=== PATIENT | male | born 1955 | race Caucasian/White ===

== ENCOUNTER 2019-01-28 12:12 | Inpatient (IN) | payer OTHER ==
--- NOTE | 2019-01-28 14:30 | HP ---
CIWA Score Nausea/Vomitin Muscle Tremors: 3 Anxiety: 2 Agitation: 2 Paroxysmal Sweats: No Perspiration Orientation: 0-Oriented Tacttile Disturbances: 0-None Auditory Disturbances: 0-None Visual Disturbances: 1-Very Mild Sensitivity Headache: 2-Mild CIWA-Ar Total Score: 12 - Admission Criteria OASAS Guidelines: Admission for Medically Managed Detox: Requires at least one of the followin. CIWA greater than 12 2. Seizures within the past 24 hours 3. Delirium tremens within the past 24 hours 4. Hallucinations within the past 24 hours 5. Acute intervention needed for co occurring medical disorder 6. Acute intervention needed for co occurring psychiatric disorder 7. Severe withdrawal that cannot be handled at a lower level of care (continued vomiting, continued diarrhea, abnormal vital signs) requiring intravenous medication and/or fluids 8. Admitting History and Physical - Smoking History Smoking history: Current every day smoker Have you smoked in the past 12 months: Yes Aproximately how many cigarettes per day: 10 - Alcohol/Substance Use Hx Alcohol Use: Yes Admission [facility] Chief Complaint: "alcohol detox" Allergies/Adverse Reactions: Allergies Allergy/AdvReac Type Severity Reaction Status Date / Time No Known Allergies Allergy Verified 01/28/19 14:14 History of Present Illness: 63 year old male with a history of alcohol dependence, hepatitis B, COPD, on methadone 170mg ([facility]) is here for alcohol detox. Alcohol: 3 6-packs (24oz beers) daily, last drink this AM; drinks every day for 3 years, longest sobriety 18 months. Drinks because of depression and anxiety. Has never had a seizure from stopping. When stops, gets "panicky", tremulous. 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 He is currently on 2.5mg of klonopin daily, 1mg in the morning ~7am and 1mg at lunchtime ~1pm as well as a 0.5mg dose before bedtime. He needs a structured environment for recovery and thus will be admitted to rehab. Please call Dr. Hernández for renewal of patient's Klonopin Exam Limitations: No Limitations - Ebola screening Have you traveled outside of the country in the last 21 days: No Have you had contact with anyone from an Ebola affected area: No Do you have a fever: No - Review of Systems Constitutional: No Symptoms Reported EENT: reports: No Symptoms Reported, Cataracts (L eye) Respiratory: reports: Cough, Shortness of Breath GI: reports: No Symptoms Reported : reports: No Symptoms Reported Musculoskeletal: reports: Back Pain Integumentary: reports: No Symptoms Reported Neuro: reports: Headache Endocrine: reports: No Symptoms Reported Hematology: reports: No Symptoms Reported Psychiatric: reports: Judgement Intact, Mood/Affect Appropiate, Orientated x3 Patient History - Patient Medical History Hx Anemia: No Hx Asthma: Yes Hx Chronic Obstructive Pulmonary Disease (COPD): No Hx Cancer: No Hx Cardiac Disorders: No Hx Congestive Heart Failure: No Hx Hypertension: Yes (not on meds.) Hx Hypercholesterolemia: No Hx Pacemaker: No HX Cerebrovascular Accident: No Hx Seizures: Yes (etoh related seizures last in 2009) Hx Dementia: No Hx Diabetes: No Hx Gastrointestinal Disorders: No Hx Liver Disease: No Hx Genitourinary Disorders: No Hx Sexually Transmitted Disorders: Yes (Gon[place]hea as a teen) Hx Renal Disease (ESRD): No Hx Thyroid Disease: No Hx Human Immunodeficiency Virus (HIV): No Hx Hepatitis C: Yes Hx Depression: Yes (AND ANXIETY) Hx Suicide Attempt: No Hx Bipolar Disorder: Yes Hx Schizophrenia: No - Patient Surgical History Past Surgical History: Yes Other Surgical History: tramatic injury to the left hand x3(2000) - Smoking Cessation Smoking history: Current every day smoker Have you smoked in the past 12 months: Yes Aproximately how many cigarettes per day: 10 Hx Chewing Tobacco Use: No Initiated information on smoking cessation: Yes 'Breaking Loose' booklet given: 01/28/19 - Substances abused Alcohol Other (specify): vodka/beer Substance route: Oral Frequency: Daily Amount used: 2 pints/2 6pk beers Age of first use: 10 Date of last use: 01/28/19 Admission Physical Exam [facility] - Vital Signs Vital Signs: Vital Signs - 24 hr 01/28/19 13:55 Temperature 97.3 F L Pulse Rate 77 Respiratory 18 Rate Blood Pressure 137/75 - Physical General Appearance: Yes: No Apparent Distress, Appropriately Dressed HEENTM: Yes: EOMI, Normal ENT Inspection Respiratory: Yes: Chest Non-Tender, Lungs Clear, Normal Breath Sounds Breast: Yes: Within Normal Limits Cardiology: Yes: Regular Rhythm, Regular Rate Abdominal: Yes: Normal Bowel Sounds, Non Tender Genitourinary: Yes: Within Normal Limits Back: Yes: Normal Inspection Musculoskeletal: Yes: full range of Motion, Other (mild kyphosis noted) Extremities: Yes: Normal Capillary Refill Neurological: Yes: nurse obgyn II-XII NML intact, Fully Oriented, Alert, Motor Strength 5/5 Integumentary: Yes: Dry, Warm Lymphatic: Yes: Within Normal Limits - Diagnostic (1) Alcohol dependence Current Visit: No Status: Active (2) Sedative dependence Current Visit: No Status: Active Cleared for Admission S - Detox or Rehab [facility] Level of Care: Medically Managed Breathalyzer - Breathalyzer Breathalyzer: 0.020 Urine Drug Screen - Test Device Lot number: [id number] Expiration date: 09/30/20 - Control Is test valid?: Yes - Results Drug screen NEGATIVE: No Urine drug screen results: BZO-Benzodiazepines Inpatient Rehab Admission - Rehab Decision to Admit Inpatient rehab admission?: Yes - Initial Determination Are CD services needed?: Yes Free of communicable disease: Yes Not in need of hospitalization: Yes - Rehab Admission Criteria Previous failed treatment: No Poor recovery environment: Yes Comorbidities: No Lacks judgement: No Patient is meeting Inpatient Rehab admission criteria:: Yes
--- NOTE | 2019-01-28 15:37 | PN ---
Teaching Attending Note Name of Resident: Jair Zaman ATTENDING PHYSICIAN STATEMENT I saw and evaluated the patient. I reviewed the resident's note and discussed the case with the resident. I agree with the resident's findings and plan as documented. SUBJECTIVE: 63 yo with opioid use disorder on methadone, here for alcohol detox. Says he has been drinking heavily for the last 3 years- drinks for relief of anxiety and depression. Pt was sent here by by housing- smell of alcohol on breath. Pt is in a methadone program and gets Klonopn 2.5 mg/day- pt states he takes it according to schedule. Pt lives alone, has cataracts. Pt has a difficult time cooking and eating regular meals. OBJECTIVE: Vital Signs - 24 hr 01/28/19 13:55 Temperature 97.3 F L Pulse Rate 77 Respiratory 18 Rate Blood Pressure 137/75 ASSESSMENT AND PLAN: alcohol use disorder- will continue Klonopin, and methadone after verification of dose. As pt needs a structured recovery program to help with alcohol discontinuation- will admit pt for rehab and continue klonopin- d/w Dr. Hernández-
[2019-01-28] MEDS ORDERED: P-EPHED 60MG/TRIPROLIDI 2.5MG TABLET PO PRN (16:13)
[2019-01-28] MEDS ORDERED: ACETAMINOPHEN 325 MG TABLET (FP) PO PRN (16:13)
[2019-01-28] MEDS ORDERED: IBUPROFEN 400 MG TABLET (FP) PO PRN (16:13)
[2019-01-28] MEDS ORDERED: MAGNESIUM CITRATE 300 ML BOTTLE PO PRN (16:13)
[2019-01-28] MEDS ORDERED: guaiFENesin 200 MG/10 ML 10 ML UNIT-DOSE CUPS PO PRN (16:13)
[2019-01-28] MEDS ORDERED: LOPERAMIDE HCL 2 MG CAPSULE PO PRN (16:13)
[2019-01-28] MEDS ORDERED: MENTHOL/PHENOL 1 EACH UD MM PRN (16:13)
[2019-01-28] MEDS ORDERED: clonazePAM 0.5 MG TABLET PO PRN (16:16)
[2019-01-28] MEDS ORDERED: clonazePAM 0.5 MG TABLET PO ONE (16:30)
[2019-01-28] MEDS ORDERED: TUBERCULIN PPD 5 TU/0.1ML VIAL ID ONE (18:25)
[2019-01-28] MEDS: THIAMINE HCL 100 MG TABLET (FP) PO SCH (22:19)
[2019-01-29] MEDS: clonazePAM 0.5 MG TABLET PO SCH ×2 (06:49→14:09)
[2019-01-29] MEDS ORDERED: METHADONE HCL 10 MG TABLET PO SCH (10:15)
[2019-01-29] MEDS ORDERED: METHADONE HCL 10 MG TABLET ONE (10:43)
[2019-01-29] MEDS ORDERED: METHADONE HCL 40 MG DISPERSABLE TABLET ONE (10:43)
[2019-01-29] MEDS: METHADONE 160 MG, METHADONE 10 MG PO SCH (10:44)
[2019-01-29] MEDS: PRENATAL VITAMINS W/ FOLIC ACID TABLET (FP) PO SCH (10:48)
[2019-01-29 11:55] LABS: HEMATOCRIT 35.8 % (35.4-49); HEMOGLOBIN 10.7 GM/dL (11.7-16.9); MCH 22.8 pg (25.7-33.7); MEAN CELL VOLUME 75.9 fl (80-96); MEAN PLT VOLUME 8.9 fl (7.5-11.1); PLATELET COUNT 109 K/MM3 (134-434); RBC 4.71 M/mm3 (4.00-5.60)
[2019-01-29 12:11] LABS: ALBUMIN 3.4 g/dl (3.4-5.0); BILIRUBIN,TOTAL 0.7 mg/dL (0.2-1); BLOOD UREA NITROGEN 11.7 mg/dL (7-18); CALCIUM 8.2 mg/dL (8.5-10.1); CREATININE 0.9 mg/dL (0.55-1.3); POTASSIUM 4.2 mmol/L (3.5-5.1); TOT PROT 7.8 g/dl (6.4-8.2)
[2019-01-29] MEDS: THIAMINE HCL 100 MG TABLET (FP) PO SCH (21:44)
[2019-01-29] MEDS: clonazePAM 0.5 MG TABLET PO PRN (21:46)
[2019-01-29 22:57] LABS: EPI CELLS 1.2 /HPF (0-5/HPF); HYALINE CASTS 0 /lpf (0-8); URINE APPEARANCE CLEAR; URINE BACTERIA 20.1 /hpf (NEGATIVE); URINE BILIRUBIN NEGATIVE (NEGATIVE); URINE COLOR YELLOW; URINE GLUCOSE (UA) NEGATIVE (NEGATIVE); URINE KETONE NEGATIVE (NEGATIVE); URINE LEUK ESTERASE 1+ (NEGATIVE); URINE NITRITE NEGATIVE (NEGATIVE); URINE PROTEIN NEGATIVE (NEGATIVE); URINE RBC 1 /hpf (0-4); URINE WBC 2 /hpf (0-5)
[2019-01-30] MEDS ORDERED: METHADONE HCL 40 MG DISPERSABLE TABLET ONE (05:03)
[2019-01-30] MEDS ORDERED: METHADONE HCL 10 MG TABLET ONE (05:03)
[2019-01-30] MEDS: METHADONE 160 MG, METHADONE 10 MG PO SCH (06:55)
[2019-01-30] MEDS: clonazePAM 0.5 MG TABLET PO SCH ×2 (06:55→13:12)
[2019-01-30] MEDS: PRENATAL VITAMINS W/ FOLIC ACID TABLET (FP) PO SCH (11:18)
[2019-01-30] MEDS: MELATONIN 5 MG TABLETS PO PRN (21:43)
[2019-01-30] MEDS: THIAMINE HCL 100 MG TABLET (FP) PO SCH (21:43)
[2019-01-30] MEDS: clonazePAM 0.5 MG TABLET PO PRN (21:44)
[2019-01-31] MEDS ORDERED: METHADONE HCL 40 MG DISPERSABLE TABLET ONE (05:45)
[2019-01-31] MEDS ORDERED: METHADONE HCL 10 MG TABLET ONE (05:45)
[2019-01-31] MEDS: METHADONE 160 MG, METHADONE 10 MG PO SCH (06:34)
[2019-01-31] MEDS: clonazePAM 0.5 MG TABLET PO SCH ×3 (06:34→21:52)
[2019-01-31] MEDS: PRENATAL VITAMINS W/ FOLIC ACID TABLET (FP) PO SCH (11:09)
[2019-01-31] MEDS ORDERED: clonazePAM 0.5 MG TABLET PO SCH (13:00)
--- NOTE | 2019-01-31 15:31 | PN ---
S Progress Note Note: pt c/o scalp irritation. Vital Signs - 24 hr 01/31/19 01/31/19 01/31/19 00:30 03:30 08:07 Temperature 97.2 F L Pulse Rate 65 Respiratory 18 18 18 Rate Blood Pressure 148/90 Laboratory Tests 01/29/19 01/29/19 01/29/19 08:20 08:20 08:20 WBC 4.0 RBC 4.71 Hgb 10.7 L Hct 35.8 MCV 75.9 L MCH 22.8 L MCHC 30.0 L RDW 19.0 H Plt Count 109 L MPV 8.9 Sodium 136 Potassium 4.2 Chloride 96 L Carbon Dioxide 34 H Anion Gap 7 L BUN 11.7 Creatinine 0.9 Est GFR (CKD-EPI)AfAm 103.51 Est GFR (CKD-EPI)NonAf 89.31 POC Glucometer Random Glucose 172 H Calcium 8.2 L Total Bilirubin 0.7 AST 30 ALT 20 Alkaline Phosphatase 63 Total Protein 7.8 Albumin 3.4 Urine Color Urine Appearance Urine pH Ur Specific [place] Urine Protein Urine Glucose (UA) Urine Ketones Urine Blood Urine Nitrite Urine Bilirubin Urine Urobilinogen Ur Leukocyte Esterase Urine WBC (Auto) Urine RBC (Auto) Urine Casts (Auto) U Epithel Cells (Auto) Urine Bacteria (Auto) RPR Titer Nonreactive 01/29/19 01/30/19 01/31/19 14:44 06:54 06:37 WBC RBC Hgb Hct MCV MCH MCHC RDW Plt Count MPV Sodium Potassium Chloride Carbon Dioxide Anion Gap BUN Creatinine Est GFR (CKD-EPI)AfAm Est GFR (CKD-EPI)NonAf POC Glucometer 99 76 Random Glucose Calcium Total Bilirubin AST ALT Alkaline Phosphatase Total Protein Albumin Urine Color Yellow Urine Appearance Clear Urine pH 7.0 D Ur Specific [place] 1.010 Urine Protein Negative Urine Glucose (UA) Negative Urine Ketones Negative Urine Blood Negative Urine Nitrite Negative Urine Bilirubin Negative Urine Urobilinogen 1.0 Ur Leukocyte Esterase 1+ H Urine WBC (Auto) 2 Urine RBC (Auto) 1 Urine Casts (Auto) 0 U Epithel Cells (Auto) 1.2 Urine Bacteria (Auto) 20.1 RPR Titer Head:clean with some mild scalp dryness and flakes. A/P Dandruff Selsun lotion as directed x 7 days.
[2019-01-31] MEDS: THIAMINE HCL 100 MG TABLET (FP) PO SCH (21:52)
[2019-01-31] MEDS: MELATONIN 5 MG TABLETS PO PRN (21:52)
[2019-02-01] MEDS ORDERED: METHADONE HCL 40 MG DISPERSABLE TABLET ONE (05:47)
[2019-02-01] MEDS ORDERED: METHADONE HCL 10 MG TABLET ONE (05:47)
[2019-02-01] MEDS: clonazePAM 0.5 MG TABLET PO SCH ×3 (06:50→21:27)
[2019-02-01] MEDS: METHADONE 160 MG, METHADONE 10 MG PO SCH (06:50)
[2019-02-01] MEDS: SELENIUM SULFIDE 2.5% LOTION 4 OZ. TP SCH (10:59)
[2019-02-01] MEDS: PRENATAL VITAMINS W/ FOLIC ACID TABLET (FP) PO SCH (11:00)
[2019-02-01] MEDS: MELATONIN 5 MG TABLETS PO PRN (21:27)
[2019-02-01] MEDS: THIAMINE HCL 100 MG TABLET (FP) PO SCH (21:27)
[2019-02-02] MEDS ORDERED: METHADONE HCL 10 MG TABLET ONE (05:20)
[2019-02-02] MEDS ORDERED: METHADONE HCL 40 MG DISPERSABLE TABLET ONE (05:21)
[2019-02-02] MEDS: clonazePAM 0.5 MG TABLET PO SCH ×3 (06:04→21:35)
[2019-02-02] MEDS: METHADONE 160 MG, METHADONE 10 MG PO SCH (06:06)
[2019-02-02] MEDS: SELENIUM SULFIDE 2.5% LOTION 4 OZ. TP SCH (10:20)
[2019-02-02] MEDS: PRENATAL VITAMINS W/ FOLIC ACID TABLET (FP) PO SCH (10:20)
[2019-02-02] MEDS: MELATONIN 5 MG TABLETS PO PRN (21:35)
[2019-02-02] MEDS: THIAMINE HCL 100 MG TABLET (FP) PO SCH (21:35)
[2019-02-03] MEDS ORDERED: METHADONE HCL 40 MG DISPERSABLE TABLET ONE (06:09)
[2019-02-03] MEDS ORDERED: METHADONE HCL 10 MG TABLET ONE (06:09)
[2019-02-03] MEDS: clonazePAM 0.5 MG TABLET PO SCH ×3 (06:10→21:38)
[2019-02-03] MEDS: METHADONE 160 MG, METHADONE 10 MG PO SCH (06:11)
[2019-02-03] MEDS: MAGNESIUM HYDROX 2400MG/30ML ORAL SUSPENSION 30 ML CUP PO PRN (07:33)
[2019-02-03] MEDS: SELENIUM SULFIDE 2.5% LOTION 4 OZ. TP SCH (09:45)
[2019-02-03] MEDS: PRENATAL VITAMINS W/ FOLIC ACID TABLET (FP) PO SCH (09:45)
[2019-02-03] MEDS: THIAMINE HCL 100 MG TABLET (FP) PO SCH (21:38)
[2019-02-03] MEDS: MELATONIN 5 MG TABLETS PO PRN (21:38)
[2019-02-04] MEDS ORDERED: METHADONE HCL 40 MG DISPERSABLE TABLET ONE (04:34)
[2019-02-04] MEDS ORDERED: METHADONE HCL 10 MG TABLET ONE (04:34)
[2019-02-04] MEDS: METHADONE 160 MG, METHADONE 10 MG PO SCH (05:28)
[2019-02-04] MEDS: clonazePAM 0.5 MG TABLET PO SCH ×3 (06:01→21:28)
[2019-02-04] MEDS: SELENIUM SULFIDE 2.5% LOTION 4 OZ. TP SCH (10:22)
[2019-02-04] MEDS: PRENATAL VITAMINS W/ FOLIC ACID TABLET (FP) PO SCH (10:22)
[2019-02-04] MEDS: MELATONIN 5 MG TABLETS PO PRN (21:28)
[2019-02-04] MEDS: THIAMINE HCL 100 MG TABLET (FP) PO SCH (21:28)
[2019-02-04] MEDS: MAGNESIUM HYDROX 2400MG/30ML ORAL SUSPENSION 30 ML CUP PO PRN (21:30)
[2019-02-05] MEDS ORDERED: METHADONE HCL 10 MG TABLET ONE (05:56)
[2019-02-05] MEDS ORDERED: METHADONE HCL 40 MG DISPERSABLE TABLET ONE (05:57)
[2019-02-05] MEDS: clonazePAM 0.5 MG TABLET PO SCH ×3 (06:29→21:07)
[2019-02-05] MEDS: METHADONE 160 MG, METHADONE 10 MG PO SCH (06:38)
[2019-02-05] MEDS: SELENIUM SULFIDE 2.5% LOTION 4 OZ. TP SCH (11:00)
[2019-02-05] MEDS: PRENATAL VITAMINS W/ FOLIC ACID TABLET (FP) PO SCH (11:00)
[2019-02-05] MEDS: MELATONIN 5 MG TABLETS PO PRN (21:07)
[2019-02-05] MEDS: THIAMINE HCL 100 MG TABLET (FP) PO SCH (21:08)
[2019-02-06] MEDS ORDERED: METHADONE HCL 40 MG DISPERSABLE TABLET PO SCH (07:30)
[2019-02-06] MEDS ORDERED: METHADONE HCL 40 MG DISPERSABLE TABLET ONE (07:49)
[2019-02-06] MEDS ORDERED: METHADONE HCL 10 MG TABLET ONE (07:49)
[2019-02-06] MEDS: METHADONE 160 MG, METHADONE 10 MG PO SCH (08:07)
[2019-02-06] MEDS: PRENATAL VITAMINS W/ FOLIC ACID TABLET (FP) PO SCH (10:04)
[2019-02-06] MEDS: clonazePAM 0.5 MG TABLET PO SCH ×3 (10:04→21:12)
[2019-02-06] MEDS: SELENIUM SULFIDE 2.5% LOTION 4 OZ. TP SCH (11:12)
[2019-02-06] MEDS: THIAMINE HCL 100 MG TABLET (FP) PO SCH (21:12)
[2019-02-06] MEDS: MELATONIN 5 MG TABLETS PO PRN (21:12)
[2019-02-07] MEDS ORDERED: METHADONE HCL 10 MG TABLET ONE (05:52)
[2019-02-07] MEDS ORDERED: METHADONE HCL 40 MG DISPERSABLE TABLET ONE (05:52)
[2019-02-07] MEDS: METHADONE 160 MG, METHADONE 10 MG PO SCH (05:53)
[2019-02-07] MEDS: SELENIUM SULFIDE 2.5% LOTION 4 OZ. TP SCH (10:07)
[2019-02-07] MEDS: PRENATAL VITAMINS W/ FOLIC ACID TABLET (FP) PO SCH (10:07)
[2019-02-07] MEDS: clonazePAM 0.5 MG TABLET PO SCH ×2 (10:11→14:39)
[2019-02-07] MEDS: MELATONIN 5 MG TABLETS PO PRN (21:09)
[2019-02-07] MEDS: clonazePAM 0.5 MG TABLET PO PRN (21:09)
[2019-02-07] MEDS: THIAMINE HCL 100 MG TABLET (FP) PO SCH (21:10)
[2019-02-07] MEDS: MAG HYDROX/AL HYDROX/SIMETH 30 ML UNIT-DOSE CUP PO PRN (22:00)
[2019-02-08] MEDS ORDERED: METHADONE HCL 10 MG TABLET ONE (05:44)
[2019-02-08] MEDS ORDERED: METHADONE HCL 40 MG DISPERSABLE TABLET ONE (05:45)
[2019-02-08] MEDS: clonazePAM 0.5 MG TABLET PO SCH ×2 (06:05→13:05)
[2019-02-08] MEDS: METHADONE 160 MG, METHADONE 10 MG PO SCH (06:06)
[2019-02-08] MEDS: PRENATAL VITAMINS W/ FOLIC ACID TABLET (FP) PO SCH (10:18)
--- NOTE | 2019-02-08 14:36 | PN ---
[facility] Progress Note (SOAP) Subjective: Nurse Muna Cabral reports that this pt reported bumping his left knee against an object. Denies pain. Objective: 02/08/19 14:33 Vital Signs - 24 hr 02/08/19 02/08/19 02/08/19 00:30 03:30 07:21 Temperature 97.6 F Pulse Rate 59 L Respiratory 18 18 18 Rate Blood Pressure 131/73 Left Knee:Dark colored, dry old scabs on knee. No bleeding or swelling noted. no pain noted. Assessment: 02/08/19 14:33 Old injury scabs Pt c/o recent knee bumping Plan: Bacitracin ointment, apply to soften and scale off old scabs.
[2019-02-08] MEDS: clonazePAM 0.5 MG TABLET PO PRN (21:16)
[2019-02-08] MEDS: MELATONIN 5 MG TABLETS PO PRN (21:16)
[2019-02-08] MEDS: BACITRACIN 15 GM TUBE TOPICAL OINTMENT TP SCH (21:17)
[2019-02-08] MEDS: THIAMINE HCL 100 MG TABLET (FP) PO SCH (21:17)
[2019-02-09] MEDS ORDERED: METHADONE HCL 10 MG TABLET ONE (03:46)
[2019-02-09] MEDS ORDERED: METHADONE HCL 40 MG DISPERSABLE TABLET ONE (03:47)
[2019-02-09] MEDS: clonazePAM 0.5 MG TABLET PO SCH ×2 (06:17→13:42)
[2019-02-09] MEDS: METHADONE 160 MG, METHADONE 10 MG PO SCH (06:17)
[2019-02-09] MEDS: BACITRACIN 15 GM TUBE TOPICAL OINTMENT TP SCH ×2 (09:47→22:10)
[2019-02-09] MEDS: PRENATAL VITAMINS W/ FOLIC ACID TABLET (FP) PO SCH (09:48)
[2019-02-09] MEDS: MAG HYDROX/AL HYDROX/SIMETH 30 ML UNIT-DOSE CUP PO PRN (14:24)
[2019-02-09] MEDS: THIAMINE HCL 100 MG TABLET (FP) PO SCH (21:07)
[2019-02-09] MEDS: MELATONIN 5 MG TABLETS PO PRN (21:09)
[2019-02-09] MEDS: clonazePAM 0.5 MG TABLET PO PRN (21:09)
[2019-02-10] MEDS ORDERED: METHADONE HCL 10 MG TABLET ONE (05:00)
[2019-02-10] MEDS ORDERED: METHADONE HCL 40 MG DISPERSABLE TABLET ONE (05:00)
[2019-02-10] MEDS: METHADONE 160 MG, METHADONE 10 MG PO SCH (06:29)
[2019-02-10] MEDS: clonazePAM 0.5 MG TABLET PO SCH ×2 (06:30→12:49)
[2019-02-10] MEDS: PRENATAL VITAMINS W/ FOLIC ACID TABLET (FP) PO SCH (10:14)
[2019-02-10] MEDS: BACITRACIN 15 GM TUBE TOPICAL OINTMENT TP SCH ×2 (10:14→21:16)
[2019-02-10] MEDS: THIAMINE HCL 100 MG TABLET (FP) PO SCH (21:16)
[2019-02-10] MEDS: MELATONIN 5 MG TABLETS PO PRN (21:16)
[2019-02-11] MEDS ORDERED: METHADONE HCL 10 MG TABLET ONE (05:51)
[2019-02-11] MEDS ORDERED: METHADONE HCL 40 MG DISPERSABLE TABLET ONE (05:52)
[2019-02-11] MEDS: clonazePAM 0.5 MG TABLET PO SCH ×2 (06:07→12:58)
[2019-02-11] MEDS: METHADONE 160 MG, METHADONE 10 MG PO SCH (06:08)
[2019-02-11] MEDS: PRENATAL VITAMINS W/ FOLIC ACID TABLET (FP) PO SCH (10:08)
[2019-02-11] MEDS: BACITRACIN 15 GM TUBE TOPICAL OINTMENT TP SCH ×2 (10:08→21:21)
[2019-02-11] MEDS: MELATONIN 5 MG TABLETS PO PRN (21:20)
[2019-02-11] MEDS: clonazePAM 0.5 MG TABLET PO PRN (21:20)
[2019-02-11] MEDS: THIAMINE HCL 100 MG TABLET (FP) PO SCH (21:21)
[2019-02-11] MEDS: MAG HYDROX/AL HYDROX/SIMETH 30 ML UNIT-DOSE CUP PO PRN (23:03)
[2019-02-12] MEDS ORDERED: METHADONE HCL 40 MG DISPERSABLE TABLET ONE (05:42)
[2019-02-12] MEDS ORDERED: METHADONE HCL 10 MG TABLET ONE (05:42)
[2019-02-12] MEDS: METHADONE 160 MG, METHADONE 10 MG PO SCH (05:54)
[2019-02-12] MEDS: clonazePAM 0.5 MG TABLET PO SCH (05:55)
[2019-02-12] MEDS: BACITRACIN 15 GM TUBE TOPICAL OINTMENT TP SCH ×2 (10:42→21:13)
[2019-02-12] MEDS: PRENATAL VITAMINS W/ FOLIC ACID TABLET (FP) PO SCH (10:42)
[2019-02-12] MEDS ORDERED: clonazePAM 0.5 MG TABLET PO SCH (13:00)
[2019-02-12] MEDS: clonazePAM 0.5 MG TABLET PO PRN (21:12)
[2019-02-12] MEDS: MELATONIN 5 MG TABLETS PO PRN (21:12)
[2019-02-12] MEDS: THIAMINE HCL 100 MG TABLET (FP) PO SCH (21:13)
[2019-02-13] MEDS ORDERED: METHADONE HCL 10 MG TABLET ONE (05:04)
[2019-02-13] MEDS ORDERED: METHADONE HCL 40 MG DISPERSABLE TABLET ONE (05:04)
[2019-02-13] MEDS ORDERED: METHADONE HCL 10 MG TABLET PO SCH (06:00)
[2019-02-13] MEDS: METHADONE 160 MG, METHADONE 10 MG PO SCH (06:22)
[2019-02-13] MEDS: clonazePAM 0.5 MG TABLET PO SCH ×2 (06:22→13:14)
[2019-02-13] MEDS: PRENATAL VITAMINS W/ FOLIC ACID TABLET (FP) PO SCH (10:15)
[2019-02-13] MEDS: BACITRACIN 15 GM TUBE TOPICAL OINTMENT TP SCH ×2 (10:16→21:15)
--- NOTE | 2019-02-13 10:24 | PN ---
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 No hx of DM. Pt was on BGM ACBK x 3 days but will continue monitoring. Pt has also been observed by staff to be very sedated in groups and on hallways. Pt insists on having his sedative(klonopin) at all means. Staff explained to patient the effects of multiple sedating medications and precautions per protocol but patient has very little insight to explanations. Vital Signs - 24 hr 02/13/19 02/13/19 02/13/19 00:30 03:30 07:14 Temperature 97.7 F Pulse Rate 59 L Respiratory 18 16 16 Rate Blood Pressure 124/81 Laboratory Tests 01/29/19 01/29/19 01/29/19 08:20 08:20 08:20 WBC 4.0 RBC 4.71 Hgb 10.7 L Hct 35.8 MCV 75.9 L MCH 22.8 L MCHC 30.0 L RDW 19.0 H Plt Count 109 L MPV 8.9 Sodium 136 Potassium 4.2 Chloride 96 L Carbon Dioxide 34 H Anion Gap 7 L BUN 11.7 Creatinine 0.9 Est GFR (CKD-EPI)AfAm 103.51 Est GFR (CKD-EPI)NonAf 89.31 POC Glucometer Random Glucose 172 H Calcium 8.2 L Total Bilirubin 0.7 AST 30 ALT 20 Alkaline Phosphatase 63 Total Protein 7.8 Albumin 3.4 Urine Color Urine Appearance Urine pH Ur Specific [place] Urine Protein Urine Glucose (UA) Urine Ketones Urine Blood Urine Nitrite Urine Bilirubin Urine Urobilinogen Ur Leukocyte Esterase Urine WBC (Auto) Urine RBC (Auto) Urine Casts (Auto) U Epithel Cells (Auto) Urine Bacteria (Auto) RPR Titer Nonreactive 01/29/19 01/30/19 01/31/19 14:44 06:54 06:37 WBC RBC Hgb Hct MCV MCH MCHC RDW Plt Count MPV Sodium Potassium Chloride Carbon Dioxide Anion Gap BUN Creatinine Est GFR (CKD-EPI)AfAm Est GFR (CKD-EPI)NonAf POC Glucometer 99 76 Random Glucose Calcium Total Bilirubin AST ALT Alkaline Phosphatase Total Protein Albumin Urine Color Yellow Urine Appearance Clear Urine pH 7.0 D Ur Specific [place] 1.010 Urine Protein Negative Urine Glucose (UA) Negative Urine Ketones Negative Urine Blood Negative Urine Nitrite Negative Urine Bilirubin Negative Urine Urobilinogen 1.0 Ur Leukocyte Esterase 1+ H Urine WBC (Auto) 2 Urine RBC (Auto) 1 Urine Casts (Auto) 0 U Epithel Cells (Auto) 1.2 Urine Bacteria (Auto) 20.1 RPR Titer 02/02/19 02/02/19 02/03/19 06:02 07:53 06:08 WBC RBC Hgb Hct MCV MCH MCHC RDW Plt Count MPV Sodium Potassium Chloride Carbon Dioxide Anion Gap BUN Creatinine Est GFR (CKD-EPI)AfAm Est GFR (CKD-EPI)NonAf POC Glucometer 61 88 53 Random Glucose Calcium Total Bilirubin AST ALT Alkaline Phosphatase Total Protein Albumin Urine Color Urine Appearance Urine pH Ur Specific [place] Urine Protein Urine Glucose (UA) Urine Ketones Urine Blood Urine Nitrite Urine Bilirubin Urine Urobilinogen Ur Leukocyte Esterase Urine WBC (Auto) Urine RBC (Auto) Urine Casts (Auto) U Epithel Cells (Auto) Urine Bacteria (Auto) RPR Titer 02/03/19 02/04/19 02/05/19 07:31 07:19 06:28 WBC RBC Hgb Hct MCV MCH MCHC RDW Plt Count MPV Sodium Potassium Chloride Carbon Dioxide Anion Gap BUN Creatinine Est GFR (CKD-EPI)AfAm Est GFR (CKD-EPI)NonAf POC Glucometer 81 70 70 Random Glucose Calcium Total Bilirubin AST ALT Alkaline Phosphatase Total Protein Albumin Urine Color Urine Appearance Urine pH Ur Specific [place] Urine Protein Urine Glucose (UA) Urine Ketones Urine Blood Urine Nitrite Urine Bilirubin Urine Urobilinogen Ur Leukocyte Esterase Urine WBC (Auto) Urine RBC (Auto) Urine Casts (Auto) U Epithel Cells (Auto) Urine Bacteria (Auto) RPR Titer 02/06/19 02/06/19 02/07/19 07:50 08:06 07:10 WBC RBC Hgb Hct MCV MCH MCHC RDW Plt Count MPV Sodium Potassium Chloride Carbon Dioxide Anion Gap BUN Creatinine Est GFR (CKD-EPI)AfAm Est GFR (CKD-EPI)NonAf POC Glucometer 54 76 64 Random Glucose Calcium Total Bilirubin AST ALT Alkaline Phosphatase Total Protein Albumin Urine Color Urine Appearance Urine pH Ur Specific [place] Urine Protein Urine Glucose (UA) Urine Ketones Urine Blood Urine Nitrite Urine Bilirubin Urine Urobilinogen Ur Leukocyte Esterase Urine WBC (Auto) Urine RBC (Auto) Urine Casts (Auto) U Epithel Cells (Auto) Urine Bacteria (Auto) RPR Titer 02/08/19 02/09/19 02/10/19 06:03 06:15 06:10 WBC RBC Hgb Hct MCV MCH MCHC RDW Plt Count MPV Sodium Potassium Chloride Carbon Dioxide Anion Gap BUN Creatinine Est GFR (CKD-EPI)AfAm Est GFR (CKD-EPI)NonAf POC Glucometer 71 73 65 Random Glucose Calcium Total Bilirubin AST ALT Alkaline Phosphatase Total Protein Albumin Urine Color Urine Appearance Urine pH Ur Specific [place] Urine Protein Urine Glucose (UA) Urine Ketones Urine Blood Urine Nitrite Urine Bilirubin Urine Urobilinogen Ur Leukocyte Esterase Urine WBC (Auto) Urine RBC (Auto) Urine Casts (Auto) U Epithel Cells (Auto) Urine Bacteria (Auto) RPR Titer 02/10/19 02/11/19 02/12/19 06:29 06:06 05:54 WBC RBC Hgb Hct MCV MCH MCHC RDW Plt Count MPV Sodium Potassium Chloride Carbon Dioxide Anion Gap BUN Creatinine Est GFR (CKD-EPI)AfAm Est GFR (CKD-EPI)NonAf POC Glucometer 81 60 107 Random Glucose Calcium Total Bilirubin AST ALT Alkaline Phosphatase Total Protein Albumin Urine Color Urine Appearance Urine pH Ur Specific [place] Urine Protein Urine Glucose (UA) Urine Ketones Urine Blood Urine Nitrite Urine Bilirubin Urine Urobilinogen Ur Leukocyte Esterase Urine WBC (Auto) Urine RBC (Auto) Urine Casts (Auto) U Epithel Cells (Auto) Urine Bacteria (Auto) RPR Titer 02/13/19 02/13/19 06:08 06:21 WBC RBC Hgb Hct MCV MCH MCHC RDW Plt Count MPV Sodium Potassium Chloride Carbon Dioxide Anion Gap BUN Creatinine Est GFR (CKD-EPI)AfAm Est GFR (CKD-EPI)NonAf POC Glucometer 66 74 Random Glucose Calcium Total Bilirubin AST ALT Alkaline Phosphatase Total Protein Albumin Urine Color Urine Appearance Urine pH Ur Specific [place] Urine Protein Urine Glucose (UA) Urine Ketones Urine Blood Urine Nitrite Urine Bilirubin Urine Urobilinogen Ur Leukocyte Esterase Urine WBC (Auto) Urine RBC (Auto) Urine Casts (Auto) U Epithel Cells (Auto) Urine Bacteria (Auto) RPR Titer A/P Sporadic morning Hypoglycemia Sedation Continue BGM ACBK Increase po fluids as tolerated Discussed pt's status with Dr. malik, Re Examiner today who will re- evaluate and adjust patients klonopin. Follow up with primary care provider for medical management after rehab treatment.
[2019-02-13] MEDS ORDERED: clonazePAM 0.5 MG TABLET PO ONE ×2 (13:00)
[2019-02-13] MEDS: clonazePAM 0.5 MG TABLET PO PRN (21:15)
[2019-02-13] MEDS: MELATONIN 5 MG TABLETS PO PRN (21:15)
[2019-02-13] MEDS: THIAMINE HCL 100 MG TABLET (FP) PO SCH (21:16)
[2019-02-14] MEDS ORDERED: METHADONE HCL 10 MG TABLET ONE (05:43)
[2019-02-14] MEDS ORDERED: METHADONE HCL 40 MG DISPERSABLE TABLET ONE (05:44)
[2019-02-14] MEDS ORDERED: clonazePAM 0.5 MG TABLET PO ONE (06:00)
[2019-02-14] MEDS ORDERED: clonazePAM 0.5 MG TABLET PO SCH (06:00)
[2019-02-14] MEDS: METHADONE 160 MG, METHADONE 10 MG PO SCH (06:04)
[2019-02-14] MEDS: BACITRACIN 15 GM TUBE TOPICAL OINTMENT TP SCH ×2 (10:26→21:26)
[2019-02-14] MEDS: PRENATAL VITAMINS W/ FOLIC ACID TABLET (FP) PO SCH (10:26)
[2019-02-14] MEDS: clonazePAM 0.5 MG TABLET PO SCH (13:12)
[2019-02-14] MEDS: MELATONIN 5 MG TABLETS PO PRN (21:25)
[2019-02-14] MEDS: THIAMINE HCL 100 MG TABLET (FP) PO SCH (21:26)
[2019-02-14] MEDS: clonazePAM 0.5 MG TABLET PO PRN (21:26)
[2019-02-15] MEDS ORDERED: METHADONE HCL 10 MG TABLET ONE (06:01)
[2019-02-15] MEDS ORDERED: METHADONE HCL 40 MG DISPERSABLE TABLET ONE (06:01)
[2019-02-15] MEDS: METHADONE 160 MG, METHADONE 10 MG PO SCH (06:25)
[2019-02-15] MEDS ORDERED: clonazePAM 0.5 MG TABLET PO ONE (09:00)
[2019-02-15] MEDS: PRENATAL VITAMINS W/ FOLIC ACID TABLET (FP) PO SCH (09:55)
[2019-02-15] MEDS: BACITRACIN 15 GM TUBE TOPICAL OINTMENT TP SCH ×2 (11:22→23:11)
[2019-02-15] MEDS: clonazePAM 0.5 MG TABLET PO SCH (13:24)
[2019-02-15] MEDS: THIAMINE HCL 100 MG TABLET (FP) PO SCH (21:17)
[2019-02-15] MEDS: MELATONIN 5 MG TABLETS PO PRN (21:19)
[2019-02-15] MEDS: clonazePAM 0.5 MG TABLET PO PRN (21:19)
[2019-02-16] MEDS ORDERED: METHADONE HCL 40 MG DISPERSABLE TABLET ONE (05:59)
[2019-02-16] MEDS ORDERED: METHADONE HCL 10 MG TABLET ONE (05:59)
[2019-02-16] MEDS: clonazePAM 0.5 MG TABLET PO SCH ×2 (06:24→13:00)
[2019-02-16] MEDS: METHADONE 160 MG, METHADONE 10 MG PO SCH (06:24)
[2019-02-16] MEDS: BACITRACIN 15 GM TUBE TOPICAL OINTMENT TP SCH ×2 (10:04→21:29)
[2019-02-16] MEDS: PRENATAL VITAMINS W/ FOLIC ACID TABLET (FP) PO SCH (10:04)
[2019-02-16] MEDS: MELATONIN 5 MG TABLETS PO PRN (21:13)
[2019-02-16] MEDS: THIAMINE HCL 100 MG TABLET (FP) PO SCH (21:14)
[2019-02-16] MEDS: clonazePAM 0.5 MG TABLET PO PRN (21:14)
[2019-02-17] MEDS ORDERED: METHADONE HCL 10 MG TABLET ONE (04:57)
[2019-02-17] MEDS ORDERED: METHADONE HCL 40 MG DISPERSABLE TABLET ONE (04:57)
[2019-02-17] MEDS: METHADONE 160 MG, METHADONE 10 MG PO SCH (06:10)
[2019-02-17] MEDS: clonazePAM 0.5 MG TABLET PO SCH ×2 (06:10→13:04)
[2019-02-17] MEDS: BACITRACIN 15 GM TUBE TOPICAL OINTMENT TP SCH ×2 (09:39→21:14)
[2019-02-17] MEDS: PRENATAL VITAMINS W/ FOLIC ACID TABLET (FP) PO SCH (09:39)
[2019-02-17] MEDS: MAGNESIUM HYDROX 2400MG/30ML ORAL SUSPENSION 30 ML CUP PO PRN (09:54)
[2019-02-17] MEDS: THIAMINE HCL 100 MG TABLET (FP) PO SCH (21:13)
[2019-02-17] MEDS: clonazePAM 0.5 MG TABLET PO PRN (21:13)
[2019-02-17] MEDS: MELATONIN 5 MG TABLETS PO PRN (21:13)
[2019-02-18] MEDS ORDERED: METHADONE HCL 10 MG TABLET ONE (05:14)
[2019-02-18] MEDS ORDERED: METHADONE HCL 40 MG DISPERSABLE TABLET ONE (05:15)
[2019-02-18] MEDS: METHADONE 160 MG, METHADONE 10 MG PO SCH (06:03)
[2019-02-18] MEDS: clonazePAM 0.5 MG TABLET PO SCH ×2 (06:03→12:57)
[2019-02-18] MEDS: MAGNESIUM HYDROX 2400MG/30ML ORAL SUSPENSION 30 ML CUP PO PRN (10:32)
[2019-02-18] MEDS: PRENATAL VITAMINS W/ FOLIC ACID TABLET (FP) PO SCH (10:32)
[2019-02-18] MEDS: BACITRACIN 15 GM TUBE TOPICAL OINTMENT TP SCH ×2 (10:33→21:14)
[2019-02-18] MEDS: clonazePAM 0.5 MG TABLET PO PRN (21:13)
[2019-02-18] MEDS: MELATONIN 5 MG TABLETS PO PRN (21:13)
[2019-02-18] MEDS: THIAMINE HCL 100 MG TABLET (FP) PO SCH (21:14)
[2019-02-19] MEDS ORDERED: METHADONE HCL 10 MG TABLET ONE (05:37)
[2019-02-19] MEDS ORDERED: METHADONE HCL 40 MG DISPERSABLE TABLET ONE (05:38)
[2019-02-19] MEDS: clonazePAM 0.5 MG TABLET PO SCH ×2 (05:57→12:54)
[2019-02-19] MEDS: METHADONE 160 MG, METHADONE 10 MG PO SCH (05:57)
[2019-02-19] MEDS ORDERED: METHADONE HCL 10 MG TABLET PO SCH (06:00)
[2019-02-19] MEDS: BACITRACIN 15 GM TUBE TOPICAL OINTMENT TP SCH ×2 (10:09→21:11)
[2019-02-19] MEDS: PRENATAL VITAMINS W/ FOLIC ACID TABLET (FP) PO SCH (10:09)
[2019-02-19] MEDS: MAGNESIUM HYDROX 2400MG/30ML ORAL SUSPENSION 30 ML CUP PO PRN (10:10)
[2019-02-19] MEDS: THIAMINE HCL 100 MG TABLET (FP) PO SCH (21:11)
[2019-02-19] MEDS: clonazePAM 0.5 MG TABLET PO PRN (21:11)
[2019-02-19] MEDS: MELATONIN 5 MG TABLETS PO PRN (21:11)
[2019-02-20] MEDS ORDERED: METHADONE HCL 10 MG TABLET ONE (05:37)
[2019-02-20] MEDS ORDERED: METHADONE HCL 40 MG DISPERSABLE TABLET ONE (05:37)
[2019-02-20] MEDS: clonazePAM 0.5 MG TABLET PO SCH ×2 (05:51→12:59)
[2019-02-20] MEDS: METHADONE 160 MG, METHADONE 10 MG PO SCH (05:51)
[2019-02-20] MEDS: PRENATAL VITAMINS W/ FOLIC ACID TABLET (FP) PO SCH (10:06)
[2019-02-20] MEDS: BACITRACIN 15 GM TUBE TOPICAL OINTMENT TP SCH ×2 (10:07→21:58)
[2019-02-20] MEDS: THIAMINE HCL 100 MG TABLET (FP) PO SCH (21:15)
[2019-02-20] MEDS: MELATONIN 5 MG TABLETS PO PRN (21:15)
[2019-02-20] MEDS: clonazePAM 0.5 MG TABLET PO PRN (21:16)
[2019-02-21] MEDS ORDERED: METHADONE HCL 10 MG TABLET ONE (05:46)
[2019-02-21] MEDS ORDERED: METHADONE HCL 40 MG DISPERSABLE TABLET ONE (05:47)
[2019-02-21] MEDS: clonazePAM 0.5 MG TABLET PO SCH ×2 (05:57→13:02)
[2019-02-21] MEDS: METHADONE 160 MG, METHADONE 10 MG PO SCH (05:58)
[2019-02-21] MEDS: PRENATAL VITAMINS W/ FOLIC ACID TABLET (FP) PO SCH (10:11)
[2019-02-21] MEDS: BACITRACIN 15 GM TUBE TOPICAL OINTMENT TP SCH ×2 (10:11→21:10)
[2019-02-21] MEDS: THIAMINE HCL 100 MG TABLET (FP) PO SCH (21:09)
[2019-02-21] MEDS: MELATONIN 5 MG TABLETS PO PRN (21:09)
[2019-02-22] MEDS ORDERED: METHADONE HCL 10 MG TABLET ONE (05:47)
[2019-02-22] MEDS ORDERED: METHADONE HCL 40 MG DISPERSABLE TABLET ONE (05:47)
[2019-02-22] MEDS: clonazePAM 0.5 MG TABLET PO SCH ×2 (05:59→13:03)
[2019-02-22] MEDS: METHADONE 160 MG, METHADONE 10 MG PO SCH (05:59)
[2019-02-22] MEDS: BACITRACIN 15 GM TUBE TOPICAL OINTMENT TP SCH ×2 (09:49→21:10)
[2019-02-22] MEDS: PRENATAL VITAMINS W/ FOLIC ACID TABLET (FP) PO SCH (09:49)
--- NOTE | 2019-02-22 13:11 | PN ---
S Progress Note Note: Pt is scheduled for discharge on 02/25/19 after completion of rehab treatment. Pt reports he has a medical provider Vital Signs 02/22/19 06:57 Temperature 98.1 F Pulse Rate 77 Respiratory 18 Rate Blood Pressure 138/69 Alert o x 3 nad; less anxious than previous weeks. oob ambulating with steady gait cardiac:s1 s2,rrr lungs;cta,lucrecia. abdomen:soft,+bs,nt,nd extremities/skin:no edema,full ROM,brown skin discoloration to lower legs, skin intact. A/P Medically stable Pt may D/C on 02/25/19 if medically stable.
[2019-02-22] MEDS: THIAMINE HCL 100 MG TABLET (FP) PO SCH (21:08)
[2019-02-22] MEDS: MELATONIN 5 MG TABLETS PO PRN (21:10)
[2019-02-22] MEDS: clonazePAM 0.5 MG TABLET PO PRN (21:43)
[2019-02-23] MEDS ORDERED: METHADONE HCL 10 MG TABLET ONE (05:58)
[2019-02-23] MEDS ORDERED: METHADONE HCL 40 MG DISPERSABLE TABLET ONE (05:59)
[2019-02-23] MEDS: METHADONE 160 MG, METHADONE 10 MG PO SCH (06:08)
[2019-02-23] MEDS: clonazePAM 0.5 MG TABLET PO SCH ×2 (06:09→13:04)
[2019-02-23] MEDS: BACITRACIN 15 GM TUBE TOPICAL OINTMENT TP SCH ×2 (10:27→21:13)
[2019-02-23] MEDS: PRENATAL VITAMINS W/ FOLIC ACID TABLET (FP) PO SCH (10:27)
[2019-02-23] MEDS: clonazePAM 0.5 MG TABLET PO PRN (21:12)
[2019-02-23] MEDS: MELATONIN 5 MG TABLETS PO PRN (21:12)
[2019-02-23] MEDS: THIAMINE HCL 100 MG TABLET (FP) PO SCH (21:13)
[2019-02-24] MEDS ORDERED: METHADONE HCL 10 MG TABLET ONE (06:05)
[2019-02-24] MEDS ORDERED: METHADONE HCL 40 MG DISPERSABLE TABLET ONE (06:05)
[2019-02-24] MEDS: clonazePAM 0.5 MG TABLET PO SCH ×2 (06:08→13:18)
[2019-02-24] MEDS: METHADONE 160 MG, METHADONE 10 MG PO SCH (06:08)
[2019-02-24 07:15] VITALS: PULSE 61
[2019-02-24] MEDS: BACITRACIN 15 GM TUBE TOPICAL OINTMENT TP SCH ×2 (10:41→21:14)
[2019-02-24] MEDS: PRENATAL VITAMINS W/ FOLIC ACID TABLET (FP) PO SCH (10:41)
[2019-02-24] MEDS: MELATONIN 5 MG TABLETS PO PRN (21:13)
[2019-02-24] MEDS: clonazePAM 0.5 MG TABLET PO PRN (21:13)
[2019-02-24] MEDS: THIAMINE HCL 100 MG TABLET (FP) PO SCH (21:13)
[2019-02-25] MEDS ORDERED: METHADONE HCL 10 MG TABLET ONE (05:56)
[2019-02-25] MEDS ORDERED: METHADONE HCL 40 MG DISPERSABLE TABLET ONE (05:57)
[2019-02-25] MEDS ORDERED: METHADONE 160 MG, METHADONE 10 MG PO SCH (06:00)
[2019-02-25] MEDS ORDERED: METHADONE HCL 10 MG TABLET PO SCH (06:00)
[2019-02-25] MEDS: clonazePAM 0.5 MG TABLET PO SCH ×2 (06:12→13:13)
[2019-02-25 07:03] VITALS: BP 138/83; TEMP 96.4
--- NOTE | 2019-02-25 09:26 | DS ---
[facility] Rehab Discharge Summary - [facility] Rehab Discharge Summary Admission Date: 01/28/19 Discharge Date: 02/25/19 - History Present History: Alcohol dependence, Sedative dependence Additional Comments: Pt is a 63 y/o male with a hx of FARSHAD admitted to rehab and discharging today. Pt has been referred to [facility] in [place], [place] for [employer] CD aftercare; [facility] [address], [place]; and [place] follow up with [place] [address] [place], [place]. . Pertinent Past History: COPD s/p Tendon repair r/t left hand injury Anxiety Disorder - Discharge Physical Exam Vital Signs: Vital Signs Temperature 96.4 F L 02/25/19 07:03 Pulse Rate 61 02/25/19 07:03 Respiratory Rate 18 02/25/19 07:03 Blood Pressure 138/83 02/25/19 07:03 O2 Sat by Pulse Oximetry (%) Alert o x 3 nad oob ambulating with steady gait cardiac:s1 s2, rrr lungs:cta,lucrecia. Barrel chest Pertinent Admission Physical Exam Findings: Laboratory Tests 01/29/19 01/29/19 01/29/19 08:20 08:20 08:20 WBC 4.0 RBC 4.71 Hgb 10.7 L Hct 35.8 MCV 75.9 L MCH 22.8 L MCHC 30.0 L RDW 19.0 H Plt Count 109 L MPV 8.9 Sodium 136 Potassium 4.2 Chloride 96 L Carbon Dioxide 34 H Anion Gap 7 L BUN 11.7 Creatinine 0.9 Est GFR (CKD-EPI)AfAm 103.51 Est GFR (CKD-EPI)NonAf 89.31 POC Glucometer Random Glucose 172 H Calcium 8.2 L Total Bilirubin 0.7 AST 30 ALT 20 Alkaline Phosphatase 63 Total Protein 7.8 Albumin 3.4 Urine Color Urine Appearance Urine pH Ur Specific [place] Urine Protein Urine Glucose (UA) Urine Ketones Urine Blood Urine Nitrite Urine Bilirubin Urine Urobilinogen Ur Leukocyte Esterase Urine WBC (Auto) Urine RBC (Auto) Urine Casts (Auto) U Epithel Cells (Auto) Urine Bacteria (Auto) RPR Titer Nonreactive 01/29/19 01/30/19 01/31/19 14:44 06:54 06:37 WBC RBC Hgb Hct MCV MCH MCHC RDW Plt Count MPV Sodium Potassium Chloride Carbon Dioxide Anion Gap BUN Creatinine Est GFR (CKD-EPI)AfAm Est GFR (CKD-EPI)NonAf POC Glucometer 99 76 Random Glucose Calcium Total Bilirubin AST ALT Alkaline Phosphatase Total Protein Albumin Urine Color Yellow Urine Appearance Clear Urine pH 7.0 D Ur Specific [place] 1.010 Urine Protein Negative Urine Glucose (UA) Negative Urine Ketones Negative Urine Blood Negative Urine Nitrite Negative Urine Bilirubin Negative Urine Urobilinogen 1.0 Ur Leukocyte Esterase 1+ H Urine WBC (Auto) 2 Urine RBC (Auto) 1 Urine Casts (Auto) 0 U Epithel Cells (Auto) 1.2 Urine Bacteria (Auto) 20.1 RPR Titer 02/02/19 02/02/19 02/03/19 06:02 07:53 06:08 WBC RBC Hgb Hct MCV MCH MCHC RDW Plt Count MPV Sodium Potassium Chloride Carbon Dioxide Anion Gap BUN Creatinine Est GFR (CKD-EPI)AfAm Est GFR (CKD-EPI)NonAf POC Glucometer 61 [phone] 53 Random Glucose Calcium Total Bilirubin AST ALT Alkaline Phosphatase Total Protein Albumin Urine Color Urine Appearance Urine pH Ur Specific [place] Urine Protein Urine Glucose (UA) Urine Ketones Urine Blood Urine Nitrite Urine Bilirubin Urine Urobilinogen Ur Leukocyte Esterase Urine WBC (Auto) Urine RBC (Auto) Urine Casts (Auto) U Epithel Cells (Auto) Urine Bacteria (Auto) RPR Titer 02/03/19 02/04/19 02/05/19 07:31 07:19 06:28 WBC RBC Hgb Hct MCV MCH MCHC RDW Plt Count MPV Sodium Potassium Chloride Carbon Dioxide Anion Gap BUN Creatinine Est GFR (CKD-EPI)AfAm Est GFR (CKD-EPI)NonAf POC Glucometer 81 70 70 Random Glucose Calcium Total Bilirubin AST ALT Alkaline Phosphatase Total Protein Albumin Urine Color Urine Appearance Urine pH Ur Specific [place] Urine Protein Urine Glucose (UA) Urine Ketones Urine Blood Urine Nitrite Urine Bilirubin Urine Urobilinogen Ur Leukocyte Esterase Urine WBC (Auto) Urine RBC (Auto) Urine Casts (Auto) U Epithel Cells (Auto) Urine Bacteria (Auto) RPR Titer 02/06/19 02/06/19 02/07/19 07:50 08:06 07:10 WBC RBC Hgb Hct MCV MCH MCHC RDW Plt Count MPV Sodium Potassium Chloride Carbon Dioxide Anion Gap BUN Creatinine Est GFR (CKD-EPI)AfAm Est GFR (CKD-EPI)NonAf POC Glucometer 54 76 64 Random Glucose Calcium Total Bilirubin AST ALT Alkaline Phosphatase Total Protein Albumin Urine Color Urine Appearance Urine pH Ur Specific [place] Urine Protein Urine Glucose (UA) Urine Ketones Urine Blood Urine Nitrite Urine Bilirubin Urine Urobilinogen Ur Leukocyte Esterase Urine WBC (Auto) Urine RBC (Auto) Urine Casts (Auto) U Epithel Cells (Auto) Urine Bacteria (Auto) RPR Titer 02/08/19 02/09/19 02/10/19 06:03 06:15 06:10 WBC RBC Hgb Hct MCV MCH MCHC RDW Plt Count MPV Sodium Potassium Chloride Carbon Dioxide Anion Gap BUN Creatinine Est GFR (CKD-EPI)AfAm Est GFR (CKD-EPI)NonAf POC Glucometer 71 73 65 Random Glucose Calcium Total Bilirubin AST ALT Alkaline Phosphatase Total Protein Albumin Urine Color Urine Appearance Urine pH Ur Specific [place] Urine Protein Urine Glucose (UA) Urine Ketones Urine Blood Urine Nitrite Urine Bilirubin Urine Urobilinogen Ur Leukocyte Esterase Urine WBC (Auto) Urine RBC (Auto) Urine Casts (Auto) U Epithel Cells (Auto) Urine Bacteria (Auto) RPR Titer 02/10/19 02/11/19 02/12/19 06:29 06:06 05:54 WBC RBC Hgb Hct MCV MCH MCHC RDW Plt Count MPV Sodium Potassium Chloride Carbon Dioxide Anion Gap BUN Creatinine Est GFR (CKD-EPI)AfAm Est GFR (CKD-EPI)NonAf POC Glucometer 81 60 107 Random Glucose Calcium Total Bilirubin AST ALT Alkaline Phosphatase Total Protein Albumin Urine Color Urine Appearance Urine pH Ur Specific [place] Urine Protein Urine Glucose (UA) Urine Ketones Urine Blood Urine Nitrite Urine Bilirubin Urine Urobilinogen Ur Leukocyte Esterase Urine WBC (Auto) Urine RBC (Auto) Urine Casts (Auto) U Epithel Cells (Auto) Urine Bacteria (Auto) RPR Titer 02/13/19 02/13/19 02/14/19 06:08 06:21 06:08 WBC RBC Hgb Hct MCV MCH MCHC RDW Plt Count MPV Sodium Potassium Chloride Carbon Dioxide Anion Gap BUN Creatinine Est GFR (CKD-EPI)AfAm Est GFR (CKD-EPI)NonAf POC Glucometer 66 74 124 Random Glucose Calcium Total Bilirubin AST ALT Alkaline Phosphatase Total Protein Albumin Urine Color Urine Appearance Urine pH Ur Specific [place] Urine Protein Urine Glucose (UA) Urine Ketones Urine Blood Urine Nitrite Urine Bilirubin Urine Urobilinogen Ur Leukocyte Esterase Urine WBC (Auto) Urine RBC (Auto) Urine Casts (Auto) U Epithel Cells (Auto) Urine Bacteria (Auto) RPR Titer 02/15/19 02/16/19 02/17/19 06:27 06:21 06:08 WBC RBC Hgb Hct MCV MCH MCHC RDW Plt Count MPV Sodium Potassium Chloride Carbon Dioxide Anion Gap BUN Creatinine Est GFR (CKD-EPI)AfAm Est GFR (CKD-EPI)NonAf POC Glucometer 74 84 66 Random Glucose Calcium Total Bilirubin AST ALT Alkaline Phosphatase Total Protein Albumin Urine Color Urine Appearance Urine pH Ur Specific [place] Urine Protein Urine Glucose (UA) Urine Ketones Urine Blood Urine Nitrite Urine Bilirubin Urine Urobilinogen Ur Leukocyte Esterase Urine WBC (Auto) Urine RBC (Auto) Urine Casts (Auto) U Epithel Cells (Auto) Urine Bacteria (Auto) RPR Titer 02/18/19 02/19/19 02/20/19 06:02 05:56 05:52 WBC RBC Hgb Hct MCV MCH MCHC RDW Plt Count MPV Sodium Potassium Chloride Carbon Dioxide Anion Gap BUN Creatinine Est GFR (CKD-EPI)AfAm Est GFR (CKD-EPI)NonAf POC Glucometer 85 115 75 Random Glucose Calcium Total Bilirubin AST ALT Alkaline Phosphatase Total Protein Albumin Urine Color Urine Appearance Urine pH Ur Specific [place] Urine Protein Urine Glucose (UA) Urine Ketones Urine Blood Urine Nitrite Urine Bilirubin Urine Urobilinogen Ur Leukocyte Esterase Urine WBC (Auto) Urine RBC (Auto) Urine Casts (Auto) U Epithel Cells (Auto) Urine Bacteria (Auto) RPR Titer 02/21/19 02/22/19 02/23/19 05:55 05:56 06:07 WBC RBC Hgb Hct MCV MCH MCHC RDW Plt Count MPV Sodium Potassium Chloride Carbon Dioxide Anion Gap BUN Creatinine Est GFR (CKD-EPI)AfAm Est GFR (CKD-EPI)NonAf POC Glucometer [phone] 63 Random Glucose Calcium Total Bilirubin AST ALT Alkaline Phosphatase Total Protein Albumin Urine Color Urine Appearance Urine pH Ur Specific [place] Urine Protein Urine Glucose (UA) Urine Ketones Urine Blood Urine Nitrite Urine Bilirubin Urine Urobilinogen Ur Leukocyte Esterase Urine WBC (Auto) Urine RBC (Auto) Urine Casts (Auto) U Epithel Cells (Auto) Urine Bacteria (Auto) RPR Titer 02/23/19 02/24/19 02/25/19 06:59 06:58 06:11 WBC RBC Hgb Hct MCV MCH MCHC RDW Plt Count MPV Sodium Potassium Chloride Carbon Dioxide Anion Gap BUN Creatinine Est GFR (CKD-EPI)AfAm Est GFR (CKD-EPI)NonAf POC Glucometer [phone] 58 Random Glucose Calcium Total Bilirubin AST ALT Alkaline Phosphatase Total Protein Albumin Urine Color Urine Appearance Urine pH Ur Specific [place] Urine Protein Urine Glucose (UA) Urine Ketones Urine Blood Urine Nitrite Urine Bilirubin Urine Urobilinogen Ur Leukocyte Esterase Urine WBC (Auto) Urine RBC (Auto) Urine Casts (Auto) U Epithel Cells (Auto) Urine Bacteria (Auto) RPR Titer - Treatment Discharge Condition: Discharge condition good Hospital Course: Rehabilitated safely and responded well CD aftercare referral accepted. - Medication-Assisted Treatment (MAT) Medication-Assisted Treatment (MAT): No - Discharge Instructions Diet, activity, other medical instructions: Diet:Regular Activity: oob ad nimesh Other medical instructions:follow up with primary care within 1 week after discharge. follow up with CD aftercare recommendation as recommended. - Diagnosis (1) Alcohol dependence Current Visit: Yes Status: Chronic (2) Sedative dependence Current Visit: Yes Status: Chronic (3) mmtp Current Visit: Yes Status: Chronic - Follow-up Referral Minutes to complete discharge: 20 - AMA Did Patient Leave Against Medical Advice: No Additional Comments: Pt reminded to follow up with primary provider(s) for medical/Mental health management.
[2019-02-25] MEDS: BACITRACIN 15 GM TUBE TOPICAL OINTMENT TP SCH (10:41)
[2019-02-25] MEDS: PRENATAL VITAMINS W/ FOLIC ACID TABLET (FP) PO SCH (10:41)
== END 2019-02-25 14:00 | disposition home or self-care (01) | DRG 895 ==
LOC: YASAS 12:12 → Y5N 15:55
PROVIDERS: ADMIT Neuromusculoskeletal Medicine & OMM; ATTEND Neuromusculoskeletal Medicine & OMM
PROC: HZ42ZZZ Group Counseling for Substance Abuse Treatment, Cognitive-Behavioral (ICD-10-PCS; principal; 2019-01-28)
DX: F11.20 Opioid dependence, uncomplicated (principal); F13.20 Sedative, hypnotic or anxiolytic dependence, uncomplicated; F10.20 Alcohol dependence, uncomplicated; F17.210 Nicotine dependence, cigarettes, uncomplicated; F41.9 Anxiety disorder, unspecified; E16.1 Other hypoglycemia; S89.82XA Other specified injuries of left lower leg, initial encounter; W22.8XXA Striking against or struck by other objects, initial encounter; Y93.89 Activity, other specified; Y92.89 Other specified places as the place of occurrence of the external cause; Y99.8 Other external cause status; Z86.69 Personal history of other diseases of the nervous system and sense organs
CPT/HCPCS: 36415; 71046-TC-FY; 80053; 81003; 82962; 85027; 86593